=== PATIENT | female | born 1940 | race Caucasian/White ===

== ENCOUNTER → 2018-10-25 20:23 | Outpatient (CLI) | payer MEDICARE, SELFPAY ==
[2018-09-28 09:58] VITALS: BMI 30.7
== END ==
PROVIDERS: Family Provider Family Medicine; PCP Family Medicine; Referring Provider Internal Medicine Critical Care Medicine; Visit Provider Internal Medicine Critical Care Medicine
DX: G47.10 Hypersomnia, unspecified (principal)
CPT/HCPCS: 95810

== ENCOUNTER → 2018-11-30 20:10 | Outpatient (CLI) | payer MEDICARE, SELFPAY ==
[2018-09-28 09:58] VITALS: BMI 30.7
== END ==
PROVIDERS: Family Provider Family Medicine; PCP Family Medicine; Referring Provider Nurse Practitioner Acute Care; Visit Provider Nurse Practitioner Acute Care
DX: G47.33 Obstructive sleep apnea (adult) (pediatric) (principal)
CPT/HCPCS: 95811

== ENCOUNTER → 2018-12-26 11:28 | Outpatient (CLI) | payer MEDICARE, SELFPAY ==
[2018-09-28 09:58] VITALS: BMI 30.7
== END ==
PROVIDERS: Family Provider Family Medicine; PCP Family Medicine; Visit Provider Nurse Practitioner Acute Care
DX: Z46.89 Encounter for fitting and adjustment of other specified devices (principal)